=== PATIENT | female | born 1990 | race African-American/Black ===

== ENCOUNTER 2022-11-22 22:00 | Emergency (ER) | payer MEDICARE, OTHER ==
[2022-11-22] MEDS ORDERED: Mag-Al Plus 1200 MG/1200 MG/120 MG/30 ML UDCUP ONE (22:31)
== END 2022-11-23 00:41 | disposition home or self-care (01) ==
LOC: MADERS 22:00
DX: J06.9 Acute upper respiratory infection, unspecified (principal); K08.89 Other specified disorders of teeth and supporting structures; K21.9 Gastro-esophageal reflux disease without esophagitis; F17.290 Nicotine dependence, other tobacco product, uncomplicated; Z79.899 Other long term (current) drug therapy
CPT/HCPCS: 71045; 87081; 87430

== ENCOUNTER 2022-12-29 22:45 | Emergency (ER) | payer MEDICARE, OTHER ==
[~2022-12-29 22:45] MED LIST: Iopamidol 370 76% 100 ML VIAL ONE
[2022-12-29 23:25] LABS: Bacteria/HPF 3+ HPF (None Seen); Bilirubin Negative (Negative); Blood, Urine Negative (Negative); CAUTI Indications for Culture Pelvic or flank pain; Clarity Cloudy (Clear); Glucose, Urine (Dipstick) Negative (Negative); Ketone, Urine Negative (Negative); Leukocyte Small (Negative); Nitrite Positive (Negative); Protein, Urine (Dipstick) Negative (Neg-Trace); RBC/HPF 0-3 HPF (0-3); pH, Urine 5.5 (5.0-9.0)
[2022-12-29 23:26] LABS: Urine Culture Reflex Yes Yes
[2022-12-29] MEDS ORDERED: Ketorolac Tromethamine 30 MG/ML VIAL ONE (23:56)
[2022-12-29] MEDS ORDERED: Ondansetron PF 4 MG/2 ML Vial ONE (23:56)
[2022-12-29] MEDS ORDERED: Sodium Chloride 0.9% 1,000 ML ONE (23:57)
[2022-12-30 00:09] LABS: Pregnancy Test - Urine (BHCG) Negative (Negative); Pregu Control Background? CLEAR/WHITE (CLR/WHITE); Pregu Control Bar Appear? YES (CONTROL BAR)
[2022-12-30 00:21] LABS: BHCG - Serum Negative (NEGATIVE); Pregs Control Background? CLEAR/WHITE (CLR/WHITE); Pregs Control Bar Appear? YES (CONTROL BAR)
[2022-12-30] MEDS ORDERED: cefTRIAXone (ROCEPHIN) 2 GM VIAL ONE (00:26)
[2022-12-30] MEDS ORDERED: Sodium Chloride 0.9% 100 ML ONE (00:26)
[2022-12-30 00:44] LABS: Hematocrit 34.7 % (36.0-47.0); Hemoglobin 11.4 g/dL (12.0-16.0); Lymphocytes 61 % (21-51); MDiff Complete? YES; Mean Corpuscular HGB CONC 32.9 g/dL (32.0-36.0); Mean Corpuscular Hemoglobin 26.1 pg (27.0-31.0); Mean Corpuscular Volume 79.2 fl (78.0-98.0); Mean Platelet Volume 9.9 fL (7.4-10.4); Monocytes 3 % (0-10); Neutrophil 36 % (42-75); Platelet Count 311 10x3/uL (130-400); RBC Distribution Width 15.7 % (11.5-14.5); Red Blood Cell (RBC) Count 4.38 mill/uL (4.20-5.40); White Blood Cell (WBC) Count 8.4 10x3/uL (4.8-10.8)
[2022-12-30 01:01] LABS: ALT (SGPT) 10 U/L (8-55); AST (SGOT) 21 U/L (5-34); Albumin 4.2 g/dL (3.5-5.0); Alkaline Phosphatase 84 U/L (40-110); Anion Gap 15 mmol/L (10-20); BUN (Urea Nitrogen) 7 mg/dL (7.0-18.7); Bilirubin, Total 0.7 mg/dL (0.2-1.2); Calc. Creatinine Clearance 0 mL/min (70-130); Calcium 8.8 mg/dL (7.8-10.44); Carbon Dioxide 19 mmol/L (22-29); Chloride 105 mmol/L (98-107); Estimated GFR 114; Globulin 3.2 g/dL (2.4-3.5); Glucose 85 mg/dL (70-105); Magnesium 1.7 mg/dL (1.6-2.6); Potassium 3.8 mmol/L (3.5-5.1); Protein, Total 7.4 g/dL (6.0-8.3); Sodium 135 mmol/L (136-145)
[2022-12-30 01:20] LABS: Lipase Less than 4 U/L (8-78)
== END 2022-12-30 02:12 | disposition home or self-care (01) ==
LOC: MADERS 22:45
DX: N10 Acute pyelonephritis (principal); K21.9 Gastro-esophageal reflux disease without esophagitis; F17.210 Nicotine dependence, cigarettes, uncomplicated
CPT/HCPCS: 74177; 80053; 81001; 81025; 83690; 83735; 84703; 85025; 87086; J0696; J1885; J2405; J3490; J7050; Q9967

== ENCOUNTER 2022-12-30 20:02 | Emergency (ER) | payer MEDICARE, OTHER ==
[2022-12-30 20:49] LABS: #Basophils 0.2 thou/uL (0.0-0.2); #Lymphocytes 2.7 thou/uL (1.20-3.40); #Monocytes 0.5 thou/uL (0.11-0.59); #Neutrophils 3.3 thou/uL (1.40-6.50); %Basophils 2.3 % (0.0-1.0); %Eosinophils 0.2 % (0.0-10.0); %Lymphocytes 40.8 % (21.0-51.0); %Neutrophils 49.7 % (42.0-75.0); Hematocrit 34.1 % (36.0-47.0); Hemoglobin 10.9 g/dL (12.0-16.0); Mean Corpuscular Hemoglobin 25.6 pg (27.0-31.0); Mean Corpuscular Volume 79.8 fl (78.0-98.0); Platelet Count 267 10x3/uL (130-400); Red Blood Cell (RBC) Count 4.27 mill/uL (4.20-5.40); White Blood Cell (WBC) Count 6.5 10x3/uL (4.8-10.8)
[2022-12-30 21:00] LABS: BHCG - Serum Negative (NEGATIVE); Pregs Control Background? CLEAR/WHITE (CLR/WHITE); Pregs Control Bar Appear? YES (CONTROL BAR); Prothrombin Time 13.9 sec (12.0-14.7)
[2022-12-30 21:11] LABS: ALT (SGPT) 10 U/L (8-55); AST (SGOT) 18 U/L (5-34); Albumin 3.9 g/dL (3.5-5.0); Alkaline Phosphatase 82 U/L (40-110); Anion Gap 17 mmol/L (10-20); BUN (Urea Nitrogen) 7 mg/dL (7.0-18.7); Bilirubin, Total 0.8 mg/dL (0.2-1.2); Calc. Creatinine Clearance 0 mL/min (70-130); Calcium 8.8 mg/dL (7.8-10.44); Carbon Dioxide 16 mmol/L (22-29); Chloride 108 mmol/L (98-107); Estimated GFR 111; Globulin 3.2 g/dL (2.4-3.5); Glucose 87 mg/dL (70-105); Potassium 3.1 mmol/L (3.5-5.1); Protein, Total 7.1 g/dL (6.0-8.3); Sodium 138 mmol/L (136-145)
[2022-12-30 21:26] LABS: Lipase Less than 4 U/L (8-78)
[2022-12-30 21:53] LABS: Bacteria/HPF Rare-Few HPF (None Seen); Bilirubin Negative (Negative); Blood, Urine Negative (Negative); CAUTI Indications for Culture < 2yrs of age; Clarity Hazy (Clear); Glucose, Urine (Dipstick) Negative (Negative); Ketone, Urine 40 mg/dL (Negative); Leukocyte Trace (Negative); Nitrite Negative (Negative); Protein, Urine (Dipstick) Trace mg/dL (Neg-Trace); RBC/HPF None Seen HPF (0-3); Specific Gravity, Urine 1.025 (1.005-1.030); pH, Urine 6.5 (5.0-9.0)
[2022-12-30] MEDS ORDERED: Potassium Chloride 20 MEQ TAB ONE (23:34)
[2022-12-31 01:14] LABS: Troponin I Less than 0.010 ng/mL (< 0.028)
== END 2022-12-31 00:25 | disposition left against medical advice (07) ==
LOC: MADERS 20:02 → EEVIPCON 20:02 → MADERS 12-31 00:25
DX: N30.00 Acute cystitis without hematuria (principal); K02.9 Dental caries, unspecified; E87.6 Hypokalemia; R77.8 Other specified abnormalities of plasma proteins; R51.9 Headache, unspecified; R22.0 Localized swelling, mass and lump, head; F17.210 Nicotine dependence, cigarettes, uncomplicated; Y04.2XXA Assault by strike against or bumped into by another person, initial encounter; Z79.899 Other long term (current) drug therapy
CPT/HCPCS: 36415; 70450; 70486; 71275; 72125; 74177; 80053; 81001; 81025; 83690; 83735; 84484; 84703; 85025; 85610; 85730; 87077; 87086; 93005; 96365; 96375; J0696; J1885; J2405; J3490; J7050; Q9967

== ENCOUNTER 2023-02-19 11:31 | Emergency (ER) | payer MEDICARE, OTHER ==
[2023-02-19] MEDS ORDERED: Ketorolac Tromethamine 60 MG/2 ML VIAL ONE (12:19)
[2023-02-19] MEDS ORDERED: traMADol HCl 50 MG TAB ONE (12:19)
[2023-02-19] MEDS ORDERED: Cephalexin 500 MG CAP ONE (12:19)
== END 2023-02-19 12:32 | disposition home or self-care (01) ==
LOC: MADERS 11:31
DX: K04.7 Periapical abscess without sinus (principal); K02.9 Dental caries, unspecified; F17.210 Nicotine dependence, cigarettes, uncomplicated
CPT/HCPCS: 96372; 99282; J1885

== ENCOUNTER 2023-04-08 17:21 | Emergency (ER) | payer MEDICARE, OTHER ==
[2023-04-08] MEDS ORDERED: Acetaminophen 500 MG TAB ONE (18:07)
[2023-04-08] MEDS ORDERED: Boostrix 0.5 ML (Tdap) VIAL (>/=7 yrs of age) ONE (19:09)
== END 2023-04-08 20:01 | disposition home or self-care (01) ==
LOC: MADERS 17:21
DX: S92.321A Displaced fracture of second metatarsal bone, right foot, initial encounter for closed fracture (principal); F17.210 Nicotine dependence, cigarettes, uncomplicated; X58.XXXA Exposure to other specified factors, initial encounter
CPT/HCPCS: 29515; 90471; 90715

== ENCOUNTER 2024-12-14 16:35 | Emergency (ER) | payer OTHER ==
[2024-12-14 17:37] LABS: #Basophils 0.2 thou/uL (0.0-0.2); #Eosinophils 0.0 thou/uL (0.0-0.7); #Lymphocytes 2.0 thou/uL (1.20-3.40); #Monocytes 0.6 thou/uL (0.11-0.59); #Neutrophils 3.8 thou/uL (1.40-6.50); %Basophils 2.3 % (0.0-1.0); %Eosinophils 0.4 % (0.0-10.0); %Lymphocytes 30.9 % (21.0-51.0); %Monocytes 9.3 % (0.0-10.0); %Neutrophils 57.1 % (42.0-75.0); Anisocytosis SLIGHT = 6-15 cells (100X) (0-5/hpf); Hematocrit 29.2 % (36.0-47.0); Hemoglobin 8.8 g/dL (12.0-16.0); MDiff Complete? YES; Mean Corpuscular Hemoglobin 22.6 pg (27.0-31.0); Mean Corpuscular Volume 75.0 fl (78.0-98.0); Microcytosis SLIGHT = 6-15 cells (100X) (0-5/hpf); Platelet Adequacy Comment Appears Adequate; Platelet Count 351 10x3/uL (130-400); Red Blood Cell (RBC) Count 3.89 mill/uL (4.20-5.40); White Blood Cell (WBC) Count 6.6 10x3/uL (4.8-10.8)
[2024-12-14 17:38] LABS: INR-International Normal Ratio 1.0; Prothrombin Time 13.7 sec (12.0-14.7)
[2024-12-14 17:39] LABS: PTT 30.1 sec (22.9-36.1)
[2024-12-14 17:40] LABS: BHCG - Serum Negative (NEGATIVE); Pregs Control Background? CLEAR/WHITE (CLR/WHITE); Pregs Control Bar Appear? YES (CONTROL BAR)
[2024-12-14 17:41] LABS: D-Dimer Test 0.27 mcg/mL (0.27-0.43)
[2024-12-14 17:47] LABS: ALT (SGPT) 8 U/L (Less than 34); AST (SGOT) 29 U/L (11-34); Albumin 3.7 g/dL (3.1-4.5); Alkaline Phosphatase 38 U/L (40-110); Anion Gap 17 mmol/L (10-20); BUN (Urea Nitrogen) 14 mg/dL (7.0-18.7); Bilirubin, Total 0.4 mg/dL (0.3-1.2); Calc. Creatinine Clearance 0 mL/min (70-130); Calcium 8.2 mg/dL (7.8-10.44); Carbon Dioxide 17 mmol/L (22-29); Chloride 107 mmol/L (98-107); Globulin 3.4 g/dL (2.4-3.5); Glucose 86 mg/dL (70-105); Magnesium 1.8 mg/dL (1.6-2.6); Potassium 3.4 mmol/L (3.5-5.1); Sodium 138 mmol/L (136-145)
[2024-12-14 18:01] LABS: Troponin I 0.010 ng/mL (< 0.028)
== END 2024-12-14 19:08 | disposition home or self-care (01) ==
LOC: MADERS 16:35
DX: M79.652 Pain in left thigh (principal); E11.9 Type 2 diabetes mellitus without complications; I10 Essential (primary) hypertension; K21.9 Gastro-esophageal reflux disease without esophagitis; E87.6 Hypokalemia; F17.210 Nicotine dependence, cigarettes, uncomplicated
CPT/HCPCS: 36415; 71275; 80053; 83735; 83880; 84484; 84703; 85025; 85379; 85610; 85730; 93005; 94760; J7120; Q9967